=== PATIENT | female | born 1950 | race Caucasian/White ===

== ENCOUNTER → 2017-09-17 | Outpatient (CLI) | payer MEDICARE, OTHER ==
[~2017-09-17] MED LIST: AMLO5 PO; ASPI81CH PO; BISHYD10 PO; ERGO50000 PO; LISI20 PO; LOSA50 PO; LOVA40 PO; MELO7.5 PO; Norco 10-325 T1 EACH PO; VICODIN 5-3001 EACH PO
[2017-09-17 17:23] LABS: U Amphetamine Screen Not Detected; U Barbituate Screen Not Detected; U Benzodiazapine Screen Not Detected; U Buprenorphine Screen Not Detected; U Cannabinoids Screen Not Detected; U Cocaine Screen Not Detected; U Methadone Screen Not Detected; U Methamphetamine Screen Not Detected; U Opiates Screen DETECTED; U Oxycodone Screen Not Detected; U Phencyclidine Screen Not Detected; U Propoxyphene Screen Not Detected
[2017-09-19 21:10] LABS: Codeine Not Detected (NOTDET); Hydrocodone 902 ng/mL (NOTDET); Hydromorphone 619 ng/mL (NOTDET); Morphine Not Detected (NOTDET); Norhydrocodone 2189 ng/mL (NOTDET); Noroxycodone Not Detected (NOTDET)
== END | disposition home or self-care (01) ==
LOC: LAB 17:01
PROVIDERS: Internal Medicine
DX: Z51.81 Encounter for therapeutic drug level monitoring (principal); Z79.899 Other long term (current) drug therapy
CPT/HCPCS: G0480

== ENCOUNTER → 2017-12-05 | Outpatient (CLI) | payer MEDICARE, OTHER ==
[2017-12-05 13:18] LABS: Source, Urine Clean Catch
[2017-12-05 16:04] LABS: Appearance, Urine Clear (Clear); Bilirubin, Urine Neg (Neg); Blood, Urine 3+ (Neg); Color, Urine Yellow (P-Yellow); Glucose Qualitative, Urine Neg (Neg); Ketones, Urine Neg (Neg); Leukocyte Esterase, Urine Neg (Neg); Nitrite, Urine Neg (Neg); Protein, Urine Neg (Neg); Urobilinogen, Urine NORM (Normal)
[2017-12-05 16:16] LABS: Squamous Epithelial Cells Few /hpf (Few); White Blood Cells, Urine 0-2 /hpf (0-5)
[2017-12-05 16:17] LABS: Bacteria Not Seen /hpf
== END | disposition home or self-care (01) ==
LOC: OLS 13:16
PROVIDERS: Urology
DX: N30.01 Acute cystitis with hematuria (principal)
CPT/HCPCS: 81001; 87086

== ENCOUNTER → 2017-12-20 | Outpatient (CLI) | payer MEDICARE, OTHER | LOC: LAB 17:29 → LAB SHORT 17:29 | DX: N39.0 Urinary tract infection, site not specified (principal) | CPT/HCPCS: 87077; 87086; 87186 ==

== ENCOUNTER → 2018-10-02 | Outpatient (CLI) | payer MEDICARE, OTHER | END | disposition home or self-care (01) | LOC: LAB 18:24 → LAB SHORT 18:24 | DX: R35.0 Frequency of micturition (principal) | CPT/HCPCS: 87077; 87086; 87186 ==

== ENCOUNTER → 2019-10-02 | Outpatient (CLI) | payer MEDICARE, OTHER ==
[2019-10-02 19:00] LABS: U Amphetamine Screen Not Detected; U Barbituate Screen Not Detected; U Benzodiazapine Screen Not Detected; U Buprenorphine Screen Not Detected; U Cannabinoids Screen Not Detected; U Cocaine Screen Not Detected; U Methadone Screen Not Detected; U Methamphetamine Screen DETECTED; U Opiates Screen DETECTED; U Oxycodone Screen Not Detected; U Phencyclidine Screen Not Detected; U Propoxyphene Screen Not Detected
== END ==
LOC: LAB SHORT 14:45 → LAB 14:45
PROVIDERS: Nurse Practitioner Family
DX: Z51.81 Encounter for therapeutic drug level monitoring (principal); Z79.899 Other long term (current) drug therapy

== ENCOUNTER → 2020-04-07 | Outpatient (CLI) | payer MEDICARE, OTHER | END | disposition home or self-care (01) | LOC: LAB SHORT 12:13 → LAB 12:13 | DX: R35.0 Frequency of micturition (principal) | CPT/HCPCS: 87077; 87086; 87186 ==

== ENCOUNTER → 2020-06-21 | Outpatient (CLI) | payer MEDICARE, OTHER ==
[2020-06-22 11:37] LABS: Candida species (DNA Probe) Negative (NEGATIVE); G. vaginalis (DNA Probe) Negative (NEGATIVE); T. vaginalis (DNA Probe) Negative (NEGATIVE)
[2020-06-22 19:06] LABS: SOURCE: CERVIX; TEST ORDERED: PAP LIQ-BASED
== END ==
LOC: LAB 15:24 → LAB SHORT 15:24
PROVIDERS: Nurse Practitioner Family
DX: N89.8 Other specified noninflammatory disorders of vagina (principal)
CPT/HCPCS: 87070; 87205; 87480; 87510; 87660; 88175

== ENCOUNTER → 2020-10-27 | Outpatient (CLI) | payer MEDICARE, OTHER | END | disposition home or self-care (01) | LOC: LAB SHORT 17:37 → LAB 17:37 | DX: Z48.817 Encounter for surgical aftercare following surgery on the skin and subcutaneous tissue (principal); L08.9 Local infection of the skin and subcutaneous tissue, unspecified | CPT/HCPCS: 87070; 87205 ==

== ENCOUNTER → 2022-10-25 | Outpatient (CLI) | payer MEDICARE, OTHER ==
[2022-10-25 18:21] LABS: U Amphetamine Screen Not Detected; U Barbituate Screen Not Detected; U Benzodiazapine Screen Not Detected; U Buprenorphine Screen Not Detected; U Cannabinoids Screen Not Detected; U Cocaine Screen Not Detected; U Methadone Screen Not Detected; U Methamphetamine Screen Not Detected; U Opiates Screen DETECTED; U Oxycodone Screen Not Detected; U Phencyclidine Screen Not Detected; U Propoxyphene Screen Not Detected
== END | disposition home or self-care (01) ==
LOC: LAB SHORT 12:00
PROVIDERS: Nurse Practitioner Family
DX: Z51.81 Encounter for therapeutic drug level monitoring (principal); Z79.899 Other long term (current) drug therapy

== ENCOUNTER → 2023-10-03 | Outpatient (CLI) | payer MEDICARE, OTHER ==
[2023-10-03 16:04] LABS: BASOPHILS ABSOLUTE AUTO 0.06 K/mm3 (0.00-0.23); BASOPHILS PERCENT AUTO 1 % (0-2); EOSINOPHILS ABSOLUTE AUTO 0.06 K/mm3 (0.00-0.68); EOSINOPHILS PERCENT AUTO 1 % (0-6); Hematocrit 37.9 % (33.0-51.0); Hemoglobin 12.5 g/dL (11.5-16.0); IMMATURE GRAN ABSOLUTE AUTO 0.02 K/mm3 (0.00-0.10); IMMATURE GRAN PERCENT AUTO 0 % (0-1); LYMPHOCYTES ABSOLUTE AUTO 1.71 K/mm3 (0.84-5.20); LYMPHOCYTES PERCENT AUTO 22 % (21-46); MONOCYTES ABSOLUTE AUTO 0.39 K/mm3 (0.16-1.47); MONOCYTES PERCENT AUTO 5 % (4-13); Mean Corpuscular HGB 30.6 pg (26.0-34.0); Mean Corpuscular Volume 93 fL (80-100); Mean Platelet Volume 9.2 fL (9.1-12.4); NEUTROPHILS ABSOLUTE AUTO 5.68 K/mm3 (1.96-9.15); NEUTROPHILS PERCENT AUTO 72 % (41-73); Platelet Count 293 K/mm3 (150-400); RDW Coefficient Variation 13.5 % (11.7-14.2); RDW Standard Deviation 45.8 fL (35.1-46.3); Red Blood Cell Count 4.09 M/mm3 (3.80-5.20); White Blood Cell Count 7.92 K/mm3 (4.00-11.30)
[2023-10-03 16:05] LABS: CHOL/HDL RATIO 2.3; Cholesterol 149 mg/dL (50-200); HDL Cholesterol 64 mg/dL (>39); Low Density Lipoprotein Chol 65 mg/dL (0-110); Triglycerides 102 mg/dL (30-160); Very Low Density Lipoprot Chol 20 mg/dL (6-32)
[2023-10-04 08:11] LABS: A/G RATIO 1.9 (1.2-2.2); BILIRUBIN, TOTAL 0.3 mg/dL (0.0-1.2); CALCIUM, SERUM 8.9 mg/dL (8.7-10.3); CREATININE, SERUM 0.74 mg/dL (0.57-1.00); GLOBULIN, TOTAL 2.4 g/dL (1.5-4.5); POTASSIUM, SERUM 4.2 mmol/L (3.5-5.2); PROTEIN, TOTAL, SERUM 6.9 g/dL (6.0-8.5)
== END ==
LOC: LAB SHORT 14:41 → LAB 14:41
PROVIDERS: Nurse Practitioner Family
DX: I10 Essential (primary) hypertension (principal)
CPT/HCPCS: 80053; 80061; 85025

== ENCOUNTER 2024-03-18 10:41 | Day surgery (SDC) | payer MEDICARE, OTHER ==
[~2024-03-18] VITALS: Ht 149.9 cm; Wt 46.4 kg
[~2024-03-18 10:41] MED LIST changes: +Balanced Salt Epinephrine Irrigation Solution 500 mL IR SCH; +LOSARTAN POTAS100 M1 PO; +Lidocaine HCl/Pf 1% 5 ML VIAL XX SCH; +Moxifloxacin HCL 0.5 MG/0.1 ML 0.4MLSYR LEFTEYE SCH; +NS 500 ML IV ONE; +PHENYLEPHRINE\\TROPICAMIDE\\TETRACAINE OPHTHALMIC DILATING SOLN LEFTEYE PRN; +Povidone-Iodine 450 DROP/30 ML Solution LEFTEYE SCH; +propofoL 0 ML IV ONE
[2024-03-18] MEDS ORDERED: FentaNYL Citrate 50 MCG/ML 2 ML Injection ONE (11:08)
[2024-03-18] MEDS ORDERED: Midazolam HCl 1MG / ML 2ML Vial ONE (11:08)
[2024-03-18] MEDS ORDERED: NS 1,000 ML IV ONE (11:17)
[2024-03-18 12:56] VITALS: BP 109/75
== END 2024-03-18 12:48 | disposition home or self-care (01) ==
LOC: ORSCSDS 10:41
PROVIDERS: Student in an Organized Health Care Education/Training Program
PROC: 08RK3JZ Replacement of Left Lens with Synthetic Substitute, Percutaneous Approach (ICD-10-PCS; principal; 2024-03-18 12:00)
DX: H25.813 Combined forms of age-related cataract, bilateral (principal); H25.12 Age-related nuclear cataract, left eye; I10 Essential (primary) hypertension; E78.5 Hyperlipidemia, unspecified; F17.210 Nicotine dependence, cigarettes, uncomplicated; Z79.82 Long term (current) use of aspirin; Z79.899 Other long term (current) drug therapy
CPT/HCPCS: J2250; J2704; J3010; J7040; V2632

== ENCOUNTER 2024-04-01 11:41 | Day surgery (SDC) | payer MEDICARE, OTHER ==
[~2024-04-01] VITALS: Ht 149.9 cm; Wt 45.8 kg
[~2024-04-01 11:41] MED LIST changes: -Moxifloxacin HCL 0.5 MG/0.1 ML 0.4MLSYR LEFTEYE SCH; +Moxifloxacin HCL 0.5 MG/0.1 ML 0.4MLSYR RIGHTEYE SCH; -PHENYLEPHRINE\\TROPICAMIDE\\TETRACAINE OPHTHALMIC DILATING SOLN LEFTEYE PRN; +PHENYLEPHRINE\\TROPICAMIDE\\TETRACAINE OPHTHALMIC DILATING SOLN RIGHTEYE PRN; -Povidone-Iodine 450 DROP/30 ML Solution LEFTEYE SCH; +Povidone-Iodine 450 DROP/30 ML Solution RIGHTEYE SCH; -propofoL 0 ML IV ONE
[2024-04-01] MEDS ORDERED: HYDROCODONE-AC1 EA19 (12:21)
[2024-04-01] MEDS ORDERED: Norco 5-325 Ta1 EACH (12:22)
[2024-04-01] MEDS ORDERED: ASPI325 PO (12:23)
[2024-04-01] MEDS ORDERED: Cetirizine HCl10 MG (12:24)
[2024-04-01] MEDS ORDERED: ALBU8HFA2 (12:24)
[2024-04-01] MEDS ORDERED: NS 500 ML IV ONE (12:33)
[2024-04-01] MEDS ORDERED: Midazolam HCl 1MG / ML 2ML Vial ONE (12:45)
[2024-04-01] MEDS ORDERED: FentaNYL Citrate 50 MCG/ML 2 ML Injection ONE (12:45)
[2024-04-01 13:49] VITALS: BP 119/69
== END 2024-04-01 13:31 | disposition home or self-care (01) ==
LOC: ORSCSDS 11:41
PROVIDERS: Student in an Organized Health Care Education/Training Program
PROC: 08RJ3JZ Replacement of Right Lens with Synthetic Substitute, Percutaneous Approach (ICD-10-PCS; principal; 2024-04-01 13:00)
DX: Z96.1 Presence of intraocular lens (principal); H25.811 Combined forms of age-related cataract, right eye; I10 Essential (primary) hypertension; Z79.899 Other long term (current) drug therapy
CPT/HCPCS: J2250; J3010; J7040; V2632

== ENCOUNTER → 2024-11-05 | Outpatient (CLI) | payer MEDICARE, OTHER ==
[~2024-11-05] MED LIST changes: +ALBU8HFA2; +ASPI325 PO; -Balanced Salt Epinephrine Irrigation Solution 500 mL IR SCH; +Cetirizine HCl10 MG; +HYDROCODONE-AC1 EA19; -Lidocaine HCl/Pf 1% 5 ML VIAL XX SCH; -Moxifloxacin HCL 0.5 MG/0.1 ML 0.4MLSYR RIGHTEYE SCH; -NS 500 ML IV ONE; +Norco 5-325 Ta1 EACH; -PHENYLEPHRINE\\TROPICAMIDE\\TETRACAINE OPHTHALMIC DILATING SOLN RIGHTEYE PRN; -Povidone-Iodine 450 DROP/30 ML Solution RIGHTEYE SCH
[2024-11-08 08:02] LABS: HSV 1 SUBTYPE BY PCR Not Detected; HSV 2 SUBTYPE BY PCR Not Detected; HSV SUBTYPE SOURCE BI LAT BUTTOX
== END ==
LOC: LAB SHORT 13:52 → LAB 13:52
PROVIDERS: Nurse Practitioner Family
DX: L20.9 Atopic dermatitis, unspecified (principal)
CPT/HCPCS: 87529

== ENCOUNTER → 2024-11-17 | Outpatient (CLI) | payer MEDICARE, OTHER ==
[2024-11-19 16:15] LABS: HSV 1 SUBTYPE BY PCR Not Detected; HSV 2 SUBTYPE BY PCR Not Detected; HSV SUBTYPE SOURCE L+R MEDIAL BUTT
[2024-11-20 03:40] LABS: VARICELLA-ZOSTER VIRUS BY PCR Not Detected; VARICELLA-ZOSTER VIRUS SOURCE L+R MEDIAL BUTT
== END ==
LOC: LAB 13:13 → LAB SHORT 13:13
PROVIDERS: Physician Assistant
DX: L08.9 Local infection of the skin and subcutaneous tissue, unspecified (principal)
CPT/HCPCS: 87070; 87205; 87529; 87798

== ENCOUNTER → 2025-01-13 | Outpatient (CLI) | payer MEDICARE, OTHER ==
[2025-01-13 18:17] LABS: BASOPHILS ABSOLUTE AUTO 0.05 K/mm3 (0.00-0.23); BASOPHILS PERCENT AUTO 1 % (0-2); EOSINOPHILS ABSOLUTE AUTO 0.07 K/mm3 (0.00-0.68); EOSINOPHILS PERCENT AUTO 1 % (0-6); Hemoglobin 12.6 g/dL (11.5-16.0); IMMATURE GRAN ABSOLUTE AUTO 0.04 K/mm3 (0.00-0.10); IMMATURE GRAN PERCENT AUTO 1 % (0-1); LYMPHOCYTES ABSOLUTE AUTO 1.57 K/mm3 (0.84-5.20); LYMPHOCYTES PERCENT AUTO 19 % (21-46); MONOCYTES ABSOLUTE AUTO 0.39 K/mm3 (0.16-1.47); MONOCYTES PERCENT AUTO 5 % (4-13); Mean Corpuscular HGB 31.5 pg (26.0-34.0); Mean Corpuscular HGB Conc 33.2 g/dL (31.5-36.5); Mean Corpuscular Volume 95 fL (80-100); Mean Platelet Volume 9.6 fL (9.1-12.4); NEUTROPHILS ABSOLUTE AUTO 6.21 K/mm3 (1.96-9.15); NEUTROPHILS PERCENT AUTO 75 % (41-73); Platelet Count 271 K/mm3 (150-400); RDW Coefficient Variation 13.2 % (11.7-14.2); RDW Standard Deviation 46.7 fL (35.1-46.3); White Blood Cell Count 8.33 K/mm3 (4.00-11.30)
[2025-01-13 18:28] LABS: Alanine Aminotransfer (ALT/SGP 15 U/L (12-78); Albumin, Blood 3.4 g/dL (3.4-5.0); Alk Phos 91 U/L (50-136); Anion Gap 8 mmol/L (3-11); Aspartate Aminotrans (AST/SGOT 14 U/L (12-37); Bilirubin, Total 0.5 mg/dL (0.1-1.0); Blood Urea Nitrogen 13 mg/dL (8-24); Bun/Creatinine Ratio 16.2 (12.0-20.0); CHOL/HDL RATIO 3.2; CO2, Blood 26 mmol/L (21-32); Calcium, Blood 9.1 mg/dL (8.5-10.1); Chloride, Blood 101 mmol/L (98-108); Cholesterol 195 mg/dL (50-200); Globulin, Blood 3.3 g/dL (2.2-4.0); Glomerular Filtration Rate 77 (60-); Glucose, Blood 136 mg/dL (70-99); HDL Cholesterol 61 mg/dL (>39); LDL/HDL RATIO 1.8; Low Density Lipoprotein Chol 110 mg/dL (0-110); Sodium, Blood 131 mmol/L (136-145); Total Protein, Blood 6.7 g/dL (6.4-8.2); Triglycerides 119 mg/dL (30-160); Very Low Density Lipoprot Chol 23 mg/dL (6-32)
== END | disposition home or self-care (01) ==
LOC: LAB SHORT 11:30 → LAB 11:30
PROVIDERS: Nurse Practitioner Family
DX: E78.00 Pure hypercholesterolemia, unspecified (principal)
CPT/HCPCS: 80053; 80061; 85025